=== PATIENT | male | born 1990 | race Asian ===

== ENCOUNTER 2018-10-14 02:21 | Emergency (ER) | payer MEDICAID ==
[2018-10-14 02:59] LABS: URINE SOURCE CLEAN C
[2018-10-14 03:01] LABS: URINE BILIRUBIN NEGATIVE (NEGATIVE); URINE BLOOD TRACE (NEGATIVE); URINE GLUCOSE (UA) NEGATIVE (NEGATIVE); URINE KETONE NEGATIVE (NEGATIVE); URINE LEUKOCYTE ESTERASE LARGE (NEGATIVE); URINE MICROSCOPIC INDICATED? YES; URINE NITRATE NEGATIVE (NEGATIVE); URINE PH 6.5 (4.6 - 8.0); URINE PROTEIN NEGATIVE (NEGATIVE); URINE UROBILINOGEN 0.2 E.U./dL (0.2 - 1.0)
[2018-10-14 03:02] LABS: URINE COLOR YELLOW
[2018-10-14 03:04] LABS: URINE CLARITY CLOUDY (CLEAR)
[2018-10-14 03:20] LABS: URINE BACTERIA 1+ /hpf (NONE SEEN); URINE EPITHELIAL CELLS OCCASIONAL /lpf (FEW); URINE WBC 25-50 /hpf (0-5)
== END 2018-10-14 04:09 | disposition home or self-care (01) ==
LOC: ER 02:21
DX: R36.9 Urethral discharge, unspecified (principal); R30.0 Dysuria; J45.909 Unspecified asthma, uncomplicated
CPT/HCPCS: 99283; 87491; 96372; 87086; 81001; J0696; Z7502